=== PATIENT | male | born 1960 | race Two or more races ===

== ENCOUNTER 2017-09-07 19:35 | Inpatient (IN) | payer OTHER ==
[2017-09-07] MEDS ORDERED: SODIUM CHLORIDE 0.9% 1,000 ML IV STA (19:36)
[2017-09-07] MEDS ORDERED: DILTIAZEM 50 MG in SODIUM CHLORIDE 0.9% 40 ML IV STA (19:36)
[2017-09-07] MEDS ORDERED: ASPIRIN 81 MG PO STA (19:37)
--- NOTE | 2017-09-07 19:42 | ED ---
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 He was nauseated and did vomit he was given Zofran this did help somewhat. He did complain of some chest pain at this time and epigastric pain. no other modifying factors. Except the patient did admit to nursing that he was drinking alcohol today MD Complaint: irregular heart beat - Related Data Allergies Allergy/AdvReac Type Severity Reaction Status Date / Time No Known Allergies Allergy Verified 09/07/17 19:41 Review of Systems ROS Statement: Those systems with pertinent positive or pertinent negative responses have been documented in the HPI. ROS Other: All systems not noted in ROS Statement are negative. General Exam - General Exam Comments Initial Comments: This is a well-developed well-nourished awake alert anxious male the patient does have the smell of alcohol conjoiners on his breath General appearance: alert, in no apparent distress Head exam: Present: atraumatic, normocephalic, normal inspection Eye exam: Present: normal appearance, PERRL, EOMI. Absent: scleral icterus, conjunctival injection, periorbital swelling ENT exam: Present: normal exam, mucous membranes moist Neck exam: Present: normal inspection. Absent: tenderness, meningismus, lymphadenopathy Respiratory exam: Present: decreased breath sounds. Absent: respiratory distress, wheezes, rales, rhonchi, stridor Cardiovascular Exam: Present: tachycardia, irregular rhythm. Absent: systolic murmur, diastolic murmur, rubs, gallop, clicks GI/Abdominal exam: Present: soft, normal bowel sounds. Absent: distended, tenderness, guarding, rebound, rigid Extremities exam: Present: normal inspection, full ROM, normal capillary refill. Absent: tenderness, pedal edema, joint swelling, calf tenderness Back exam: Present: normal inspection Neurological exam: Present: alert, oriented X3, CN II-XII intact Psychiatric exam: Present: normal affect, normal mood Skin exam: Present: warm, dry, intact, normal color. Absent: rash Course Vital Signs 09/07/17 09/07/17 09/07/17 19:36 20:16 20:20 Temperature 97.7 F Pulse Rate 127 H 135 H 119 H Respiratory 22 20 Rate Blood Pressure 132/77 128/75 O2 Sat by Pulse 96 95 97 Oximetry 09/07/17 09/07/17 20:54 22:10 Temperature Pulse Rate 143 H 130 H Respiratory 18 18 Rate Blood Pressure 228/75 113/75 O2 Sat by Pulse 98 100 Oximetry - Reevaluation(s) Reevaluation #1: 09/07/17 22:10 The patient did require increasing the Cardizem due to his persistent elevated heart rate. Reevaluation #2: 09/07/17 22:10 The patient did complain of shortness of breath he did receive a nebulizer treatment. EKG Findings - EKG Results: EKG: interpreted by SNEHA (Atrial fibrillation with a rapid ventricular response rate of 131 QRS 86 QT since QTC of 324/478 left exodeviation) Medical Decision Making - Medical Decision Making The patient was feeling improved after his heart rate was controlled he did demonstrate evidence of alcohol intoxication. Patient will be admitted for treatment of atrial fibrillation with a rapid ventricular response as well as asthma exacerbation alcohol extrication. The information is obtained with the help of an translator interpreter over the phone. - Lab Data Result diagrams: 09/07/17 19:38 09/07/17 19:38 Lab Results 09/07/17 09/07/17 09/07/17 Range/Units 19:38 19:38 19:38 WBC 8.1 (3.8-10.6) k/uL RBC 5.71 (4.30-5.90) m/uL Hgb 16.0 (13.0-17.5) gm/dL Hct 49.1 (39.0-53.0) % MCV 86.0 (80.0-100.0) fL MCH 28.0 (25.0-35.0) pg MCHC 32.6 (31.0-37.0) g/dL RDW 17.3 H (11.5-15.5) % Plt Count 220 (150-450) k/uL Neutrophils % 44 % Lymphocytes % 44 % Monocytes % 6 % Eosinophils % 3 % Basophils % 0 % Neutrophils # 3.6 (1.3-7.7) k/uL Lymphocytes # 3.6 (1.0-4.8) k/uL Monocytes # 0.5 (0-1.0) k/uL Eosinophils # 0.2 (0-0.7) k/uL Basophils # 0.0 (0-0.2) k/uL Anisocytosis Slight PT (9.0-12.0) sec INR (<1.2) APTT (22.0-30.0) sec D-Dimer (<0.60) mg/L FEU Sodium 144 (137-145) mmol/L Potassium 3.8 (3.5-5.1) mmol/L Chloride 102 (98-107) mmol/L Carbon Dioxide 18 L (22-30) mmol/L Anion Gap 24 mmol/L BUN 11 (9-20) mg/dL Creatinine 0.76 (0.66-1.25) mg/dL Est GFR (CKD-EPI)AfAm >90 (>60 ml/min/1.73 sqM) Est GFR (CKD-EPI)NonAf >90 (>60 ml/min/1.73 sqM) Glucose 98 (74-99) mg/dL Calcium 8.6 (8.4-10.2) mg/dL Magnesium 1.6 (1.6-2.3) mg/dL Total Bilirubin 1.5 H (0.2-1.3) mg/dL AST 82 H (17-59) U/L ALT 59 (21-72) U/L Alkaline Phosphatase 98 (38-126) U/L Total Creatine Kinase 45 L (55-170) U/L CK-MB (CK-2) 0.8 (0.0-2.4) ng/mL CK-MB (CK-2) Rel Index 1.8 Troponin I <0.012 (0.000-0.034) ng/mL Total Protein 6.8 (6.3-8.2) g/dL Albumin 4.0 (3.5-5.0) g/dL Amylase 50 (30-110) U/L Lipase 101 (23-300) U/L TSH 1.680 (0.465-4.680) mIU/L Serum Alcohol 368 mg/dL 09/07/17 Range/Units 19:38 WBC (3.8-10.6) k/uL RBC (4.30-5.90) m/uL Hgb (13.0-17.5) gm/dL Hct (39.0-53.0) % MCV (80.0-100.0) fL MCH (25.0-35.0) pg MCHC (31.0-37.0) g/dL RDW (11.5-15.5) % Plt Count (150-450) k/uL Neutrophils % % Lymphocytes % % Monocytes % % Eosinophils % % Basophils % % Neutrophils # (1.3-7.7) k/uL Lymphocytes # (1.0-4.8) k/uL Monocytes # (0-1.0) k/uL Eosinophils # (0-0.7) k/uL Basophils # (0-0.2) k/uL Anisocytosis PT 10.7 (9.0-12.0) sec INR 1.1 (<1.2) APTT 24.0 (22.0-30.0) sec D-Dimer 3.94 H (<0.60) mg/L FEU Sodium (137-145) mmol/L Potassium (3.5-5.1) mmol/L Chloride (98-107) mmol/L Carbon Dioxide (22-30) mmol/L Anion Gap mmol/L BUN (9-20) mg/dL Creatinine (0.66-1.25) mg/dL Est GFR (CKD-EPI)AfAm (>60 ml/min/1.73 sqM) Est GFR (CKD-EPI)NonAf (>60 ml/min/1.73 sqM) Glucose (74-99) mg/dL Calcium (8.4-10.2) mg/dL Magnesium (1.6-2.3) mg/dL Total Bilirubin (0.2-1.3) mg/dL AST (17-59) U/L ALT (21-72) U/L Alkaline Phosphatase (38-126) U/L Total Creatine Kinase (55-170) U/L CK-MB (CK-2) (0.0-2.4) ng/mL CK-MB (CK-2) Rel Index Troponin I (0.000-0.034) ng/mL Total Protein (6.3-8.2) g/dL Albumin (3.5-5.0) g/dL Amylase (30-110) U/L Lipase (23-300) U/L TSH (0.465-4.680) mIU/L Serum Alcohol mg/dL - Radiology Data Radiology results: report reviewed (I did review the imaging and report no acute findings no evidence of pulmonary emboli.), image reviewed Critical Care Time Critical Care Time: Yes Critical Care Time: 39 minutes of critical care time which includes monitoring the EMS run and discussed with paramedics history physical labs x-rays several reevaluation the patient discussed with the admission physician and admission orders. Disposition Clinical Impression: Rapid atrial fibrillation, Acute asthma exacerbation, Alcohol intoxication Disposition: ADMITTED IP TO THIS [facility] Condition: Stable Referrals: Nonstaff,Physician [Primary Care Provider] - 1-2 days
[2017-09-07 19:52] LABS: Anisocytosis Slight; Basophils % (A) 0 %; Eosinophils # (A) 0.2 k/uL (0-0.7); Eosinophils % (A) 3 %; HCT 49.1 % (39.0-53.0); Lymphocytes # (A) 3.6 k/uL (1.0-4.8); Lymphocytes % (A) 44 %; MCHC 32.6 g/dL (31.0-37.0); Mean Platelet Volume 7.9; Monocytes # (A) 0.5 k/uL (0-1.0); Monocytes % (A) 6 %; Neutrophils # (A) 3.6 k/uL (1.3-7.7); Neutrophils % (A) 44 %; Platelet Count 220 k/uL (150-450); RBC 5.71 m/uL (4.30-5.90); RDW 17.3 % (11.5-15.5); WBC 8.1 k/uL (3.8-10.6)
[2017-09-07 20:09] LABS: ALT 59 U/L (21-72); AST 82 U/L (17-59); Alkaline Phosphatase 98 U/L (38-126); Amylase 50 U/L (30-110); Anion Gap 24 mmol/L; Blood Urea Nitrogen 11 mg/dL (9-20); Calcium 8.6 mg/dL (8.4-10.2); Carbon Dioxide 18 mmol/L (22-30); Chloride 102 mmol/L (98-107); Glucose 98 mg/dL (74-99); Lipase 101 U/L (23-300); Magnesium 1.6 mg/dL (1.6-2.3); Potassium 3.8 mmol/L (3.5-5.1); Sodium 144 mmol/L (137-145); Total Bilirubin 1.5 mg/dL (0.2-1.3); Total Protein 6.8 g/dL (6.3-8.2)
[2017-09-07 20:11] LABS: INR 1.1 (<1.2); Prothrombin Time 10.7 sec (9.0-12.0)
[2017-09-07 20:12] LABS: Creatine Kinase 45 U/L (55-170)
[2017-09-07 20:20] LABS: Alcohol 368 mg/dL
--- NOTE | 2017-09-07 20:21 | XR ---
EXAMINATION: XR chest 2V DATE AND TIME: 09/07/2017 7:58 PM ORDERING PROVIDER: Lazaro Lopez MD CLINICAL INDICATION: dysrhythmia TECHNIQUE: AP and lateral COMPARISON: None. DESCRIPTION: The lungs are clear. The pleural spaces are negative. The cardiac silhouette is not enlarged. The mediastinal and pleural silhouettes are unremarkable. The skeletal structures are intact without focal findings. The soft tissues are unremarkable. IMPRESSION: NO ACUTE PROCESS.
[2017-09-07 20:22] LABS: D-Dimer 3.94 mg/L FEU (<0.60)
[2017-09-07 20:25] LABS: Creatine Kinase MB 0.8 ng/mL (0.0-2.4); Troponin I <0.012 ng/mL (0.000-0.034)
[2017-09-07] MEDS ORDERED: MAGNESIUM SULFATE-D5W PMX 1 GM in DEXTROSE/WATER 1 100ML.BAG IVPB ONE (20:45)
[2017-09-07] MEDS ORDERED: fentaNYL (PF) 50 MCG/ML 2 ML AMP IV STA (20:46)
[2017-09-07] MEDS ORDERED: IPRATROPIUM-ALBUTEROL 3 ML NEB INHALATION STA (22:02)
--- NOTE | 2017-09-07 22:12 | CT ---
EXAMINATION TYPE: CT angio chest with contrast and with 3-D reconstruction renderings DATE OF EXAM: 09/07/2017 9:35 PM COMPARISON: NONE HISTORY: chest pain with elevated D-dimer CT DLP: 320.80 mGycm. Automated exposure control for dose reduction was used. CONTRAST: CTA scan of the thorax is performed with IV Contrast, patient injected with 85 mL of Isovue 370, pulmonary embolism protocol. 3-D reconstruction renderings. FINDINGS: LUNGS: The lungs are grossly clear, there is no concerning parenchymal mass or nodule identified. T here is no pleural effusion or pneumothorax seen. The tracheobronchial tree is patent. MEDIASTINUM: There is satisfactory enhancement of the pulmonary artery and its branches, there is no CT evidence for pulmonary embolism. There are no greater than 1 cm hilar or mediastinal lymph nodes. The aorta is unremarkable. There is mild cardiomegaly. Coronary calcifications are noted. No perica rdial effusion is seen. OTHER: A prominent hiatal hernia is noted. IMPRESSION: NO ACUTE PROCESS.
[2017-09-07] MEDS ORDERED: NALOXONE 0.4 MG/ML 1 ML VIAL IV PRN (22:15)
[2017-09-07] MEDS ORDERED: SODIUM CHLORIDE 0.9% 500 ML IV STA (22:18)
[2017-09-07] MEDS ORDERED: SODIUM CHLORIDE 0.9% 500 ML IV ONE (22:18)
[2017-09-07] MEDS ORDERED: HEPARIN SODIUM,PORCINE 5,000 UNIT/ML 1 ML VIAL IV ONE (22:19)
[2017-09-07] MEDS ORDERED: IPRATROPIUM-ALBUTEROL 3 ML NEB INHALATION PRN (22:26)
[2017-09-07] MEDS ORDERED: HEPARIN SODIUM,PORCINE/D5W PMX 25,000 UNIT in DEXTROSE/WATER 1 500ML.BAG IV SCH (22:30)
[2017-09-07] MEDS: SODIUM CHLORIDE 0.9% 1,000 ML IV SCH (22:50)
[2017-09-08] MEDS ORDERED: PROCHLORPERAZINE 10 MG TAB PO PRN (00:12)
[2017-09-08 00:34] VITALS: BMI 27.1
[2017-09-08] MEDS: MORPHINE SULFATE 2 MG/ML SYRINGE IVP PRN ×2 (00:48→06:29)
[2017-09-08] MEDS: DILTIAZEM 50 MG in SODIUM CHLORIDE 0.9% 40 ML IV SCH ×6 (00:49→20:40)
[2017-09-08] MEDS ORDERED: IPRATROPIUM-ALBUTEROL 3 ML NEB INHALATION SCH (02:00)
[2017-09-08 02:15] LABS: Creatine Kinase 42 U/L (55-170)
[2017-09-08 02:27] LABS: Creatine Kinase MB 0.7 ng/mL (0.0-2.4); Troponin I <0.012 ng/mL (0.000-0.034)
[2017-09-08 07:00] LABS: Creatine Kinase 36 U/L (55-170)
[2017-09-08 07:13] LABS: Creatine Kinase MB 0.6 ng/mL (0.0-2.4); Troponin I <0.012 ng/mL (0.000-0.034)
[2017-09-08] MEDS ORDERED: SODIUM CHLORIDE 0.9% 1,000 ML IV SCH (10:00)
[2017-09-08] MEDS: METOPROLOL TARTRATE 50 MG TAB PO SCH ×2 (11:48→20:49)
[2017-09-08] MEDS: ENOXAPARIN 80 MG/0.8 ML SYRINGE SQ SCH ×2 (11:48→20:45)
[2017-09-08] MEDS: PANTOPRAZOLE 40 MG/10 ML VIAL IVP SCH (11:48)
[2017-09-08] MEDS: SODIUM CHLORIDE 0.9% 1,000 ML IV SCH (11:50)
[2017-09-08] MEDS: MULTIVITAMINS, THERA 1 EACH TAB PO SCH (11:51)
[2017-09-08] MEDS: ACETAMINOPHEN TAB 325 MG TAB PO PRN ×2 (15:00→20:50)
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
[2017-09-08] MEDS: THIAMINE 100 MG TAB PO SCH (18:38)
--- NOTE | 2017-09-08 19:43 | HP ---
HISTORY AND PHYSICAL DATE OF ADMISSION: 09/07/17 CHIEF COMPLAINT: Rapid heart beating and shortness of breath. HISTORY OF PRESENT ILLNESS: Very difficult to obtain history from this 57-year-old male. 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 He is passing through and had some difficulty breathing. He also has a history of asthma. He came into the emergency room and was admitted. He has had no fever, chills, hemoptysis, purulent sputum production, etc. He was intoxicated as well. Past medical history, family history, personal and social histories are not obtainable. He does not speak Sinhala. PHYSICAL EXAM: Blood pressure is 91/55 with a pulse of 131 and respirations were 38. He is afebrile. GENERAL: He appeared to be slender in no acute distress. SKIN was dry. Lymph nodes not enlarged. HEENT: Head, ears, eyes, nose, mouth, and throat were normal. NECK: Veins not distended. Thyroid is not enlarged. CHEST: Demonstrated occasional wheezing on inspiration and expiration with occasional rales at the bases. CARDIAC exam demonstrated atrial fibrillation and the abdomen is soft, nontender. EXTREMITIES: Normal. NEUROLOGICAL: He is intact. IMPRESSION: 1. Atrial fibrillation with rapid ventricular response. 2. Reactive airway disease. 3. Possible congestive heart failure. 4. Alcohol intoxication. PLAN: 1. Bed rest. 2. IV fluids. 3. Control heart rate. MMODL / IJN: [id number] /
--- NOTE | 2017-09-08 19:43 | PN ---
PROGRESS NOTE DATE OF SERVICE: 09/08/17 CHIEF COMPLAINT: Shortness of breath. HISTORY OF PRESENT ILLNESS: This gentleman is still a little bit short of breath. Heart rate is still elevated. He has no other complaints and he apparently is not having pain. PHYSICAL EXAM: Chest is fairly clear. Cardiac exam demonstrates atrial fibrillation. Abdomen is soft, nontender. IMPRESSION: 1. Shortness of breath. 2. Atrial fibrillation. 3. Alcohol intoxication. 4. Asthmatic bronchitis. PLAN: Continue to monitor heart rate and respiratory function while increasing activity. MMODL / IJN: [id number] /
[2017-09-09 06:37] LABS: Anion Gap 19 mmol/L; Blood Urea Nitrogen 9 mg/dL (9-20); Calcium 8.5 mg/dL (8.4-10.2); Carbon Dioxide 18 mmol/L (22-30); Chloride 106 mmol/L (98-107); Glucose 92 mg/dL (74-99); Magnesium 1.7 mg/dL (1.6-2.3); Potassium 3.4 mmol/L (3.5-5.1); Sodium 143 mmol/L (137-145)
[2017-09-09] MEDS: METOPROLOL TARTRATE 50 MG TAB PO SCH ×2 (07:16→19:53)
[2017-09-09] MEDS: PANTOPRAZOLE 40 MG/10 ML VIAL IVP SCH (08:22)
[2017-09-09] MEDS: MULTIVITAMINS, THERA 1 EACH TAB PO SCH (08:22)
[2017-09-09] MEDS: ENOXAPARIN 80 MG/0.8 ML SYRINGE SQ SCH ×2 (08:22→19:53)
[2017-09-09] MEDS: THIAMINE 100 MG TAB PO SCH ×2 (08:22→16:39)
[2017-09-09] MEDS: POTASSIUM CHLORIDE ER 20 MEQ TAB.ER PO SCH ×3 (10:28→14:56)
[2017-09-09] MEDS ORDERED: PROPAFENONE 225 MG TAB PO STA (11:24)
--- NOTE | 2017-09-09 12:54 | ECHOF ---
Referral Reason:pain/shortness of breath/post procedure MEASUREMENTS -------- HEIGHT: 180.3 cm WEIGHT: 95.3 kg BP: 95/55 IVSd: 1.6 cm (0.6 - 1.1) LVIDd: 3.4 cm (3.9 - 5.3) LVPWd: 1.4 cm (0.6 - 1.1) IVSs: 1.9 cm LVIDs: 2.2 cm LVPWs: 1.9 cm LAESV Index (A-L): 19.91 ml/m Ao Diam: 3.8 cm (2.0 - 3.7) AV Cusp: 2.5 cm (1.5 - 2.6) LA Diam: 3.8 cm (2.7 - 3.8) RAP: 5.00 mmHg RVSP: 14.89 mmHg FINDINGS -------- Atrial fibrillation. This was a technically good study. The left ventricular size is normal. There is moderate concentric left ventricular hypertrophy. O verall left ventricular systolic function is normal with, an EF between 55 - 60 %. The right ventricle is normal in size and function. The left atrium is normal in size. The right atrium is normal in size. The aortic valve is trileaflet, and appears structurally normal. No aortic stenosis or regurgitation. The mitral valve is normal. There is trace mitral regurgitation. Mild tricuspid regurgitation present. The right ventricular systolic pressure, as measured by Doppl er, is 14.89mmHg. There is no pulmonic regurgitation present. The aortic root size is normal. There is no pericardial effusion. CONCLUSIONS -------- 1. Atrial fibrillation. 2. This was a technically good study. 3. The left ventricular size is normal. 4. There is moderate concentric left ventricular hypertrophy. 5. Overall left ventricular systolic function is normal with, an EF between 55 - 60 %. 6. The left atrium is normal in size. 7. The aortic valve is trileaflet, and appears structurally normal. No aortic stenosis or regurgitati on. 8. There is trace mitral regurgitation. 9. Mild tricuspid regurgitation present. 10. The right ventricular systolic pressure, as measured by Doppler, is 14.89mmHg. 11. There is no pulmonic regurgitation present. 12. The aortic root size is normal. 13. There is no pericardial effusion. INSPECTOR W[employer]LLUTION CONTROL: Pari Bee RDCS
--- NOTE | 2017-09-09 14:53 | PN ---
PROGRESS NOTE CHIEF COMPLAINT: Rapid heart beating. HISTORY OF PRESENT ILLNESS: This gentleman is still feeling a little bit short of breath. He denies chest pain. He is being seen by Cardiology. PHYSICAL EXAM: His chest is quite clear. Cardiac exam demonstrates his atrial fibrillation. The abdomen is soft, nontender. Extremities are normal. IMPRESSION: 1. Shortness of breath. 2. Atrial fibrillation with rapid ventricular response. PLAN: 1. Await recommendations from Cardiology. 2. He should probably undergo an echocardiogram. It will also be important to determine his Chads-Vasc score. MMODL / IJN: [id number] /
--- NOTE | 2017-09-09 15:25 | XR ---
EXAMINATION TYPE: XR chest 2V DATE OF EXAM: 09/09/2017 COMPARISON: 09/07/2017 HISTORY: Chest pain and shortness of breath TECHNIQUE: Frontal and lateral views of the chest are obtained. FINDINGS: There is no focal air space opacity, pleural effusion, or pneumothorax seen. The cardiac silhouette size is within normal limits. The osseous structures are intact. IMPRESSION: No acute cardiopulmonary process.
[2017-09-09] MEDS: PROPAFENONE 150 MG TAB PO SCH ×2 (16:39→19:53)
--- NOTE | 2017-09-09 16:41 | PN ---
PROGRESS NOTE Mr. Eddy is still in atrial fibrillation. Rate is much better controlled. Cardizem drip is off. His echocardiogram revealed preserved systolic function. We will therefore initiate him on Rythmol 450 mg single dose to see if he converts to sinus rhythm. We will continue Lovenox. If he converts to sinus rhythm, he can be discharged. Vital signs are stable. S1, S2 heard normally. Lungs are clear. Abdomen and lower extremity exam is unchanged. MMODL / IJN: [id number] /
[2017-09-09] MEDS ORDERED: LORazepam 2 MG/ML INJ IV PRN ×3 (22:51)
[2017-09-09] MEDS ORDERED: HALOPERIDOL LACTATE 5 MG/ML 1 ML VIAL IM STA (22:53)
[2017-09-09] MEDS ORDERED: LORazepam 2 MG/ML INJ IV STA (22:53)
[2017-09-09] MEDS: ACETAMINOPHEN TAB 325 MG TAB PO PRN (23:19)
[2017-09-10 04:16] VITALS: RESP 16
[2017-09-10] MEDS: ENOXAPARIN 80 MG/0.8 ML SYRINGE SQ SCH (08:38)
[2017-09-10] MEDS: MULTIVITAMINS, THERA 1 EACH TAB PO SCH (08:39)
[2017-09-10] MEDS: THIAMINE 100 MG TAB PO SCH (08:39)
[2017-09-10] MEDS: METOPROLOL TARTRATE 50 MG TAB PO SCH (08:39)
[2017-09-10] MEDS: PROPAFENONE 150 MG TAB PO SCH (08:39)
[2017-09-10 08:47] VITALS: BP 113/71; PULSE 80; TEMP 97.7
[2017-09-10] MEDS ORDERED: PANTOPRAZOLE 40 MG TABLET PO SCH (09:00)
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
--- NOTE | 2017-09-10 20:09 | DS ---
DISCHARGE SUMMARY CHIEF COMPLAINT: Rapid heart beating. HISTORY OF PRESENT ILLNESS AND PHYSICAL EXAMINATION: Details of this man's history and physical can be found in the initial workup. LABORATORY STUDIES: While he was in the hospital he had laboratory studies, details of which can be found in the laboratory section of his chart. COURSE IN THE HOSPITAL: After admission he was placed on bedrest, started on intravenous fluids and placed on a Cardizem drip. He did eventually convert. It was thought that he might go into DTs, but this did not develop. He was doing well enough that it was felt by Cardiology that he could be released on September 10. 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 He will follow up with his own physician in [place] in several days. FINAL DIAGNOSES: 1. Atrial fibrillation. 2. Acute alcohol intoxication. 3. Delirium tremens. OPERATIONS: None. CONSULTATIONS: Cardiology He is improved. MMLIZZL / JOYCEN: [id number] /
== END 2017-09-10 12:11 | disposition home or self-care (01) | DRG 309 ==
LOC: EC 19:35 → 6SEL 22:16
PROVIDERS: ADMIT Family Medicine; ATTEND Family Medicine
DX: I48.0 Paroxysmal atrial fibrillation (principal); F10.221 Alcohol dependence with intoxication delirium; J45.901 Unspecified asthma with (acute) exacerbation; R79.1 Abnormal coagulation profile; K29.20 Alcoholic gastritis without bleeding
CPT/HCPCS: 36415; 71046; 71275; 80048; 80053; 80320; 82150; 82550; 82553; 83690; 83735; 84443; 84484; 85025; 85379; 85610; 85730; 93005; 93306; 94640; 94760; 96361; 96365; 96366; 96375; 99291